=== PATIENT | male | born 1995 | race African-American/Black ===

== ENCOUNTER 2017-04-11 03:03 | Emergency (ER) | payer OTHER ==
[~2017-04-11] VITALS: Ht 195.6 cm; Wt 124.7 kg
[~2017-04-11 03:03] MED LIST: ANTIFUNGAL15 G1 TP; CYCLOBENZAPRINE5 MG PO; MOBIC15 MG PO
[2017-04-11] MEDS ORDERED: PERCOCET 10-321 EACH PO (03:29)
[2017-04-11] MEDS ORDERED: ENOXAPARIN40 MG/0.1 SUBQ (03:30)
[2017-04-11] MEDS ORDERED: COLACE100 MG PO (03:30)
[2017-04-11] MEDS ORDERED: ONDANSETRON HCL4 M2 PO (03:31)
[2017-04-11] MEDS ORDERED: NORFLEX100 MG PO (04:25)
== END 2017-04-11 04:55 | disposition home or self-care (01) ==
LOC: ER 03:03
DX: R60.0 Localized edema (principal); F17.210 Nicotine dependence, cigarettes, uncomplicated

== ENCOUNTER 2020-02-22 01:27 | Emergency (ER) | payer OTHER ==
[~2020-02-22] VITALS: Ht 195.6 cm; Wt 108.9 kg
[~2020-02-22 01:27] MED LIST changes: +COLACE100 MG PO; +ENOXAPARIN40 MG/0.1 SUBQ; +NORFLEX100 MG PO; +ONDANSETRON HCL4 M2 PO; +PERCOCET 10-321 EACH PO
[2020-02-22 03:16] VITALS: BP 119/72
--- NOTE | 2020-02-22 07:30 | EKG ---
[address] [address] [place] [address] ELECTROCARDIOGRAM REPORT Name: BEBE HARRELL Room #: [facility]#: [id number] Admission: 02/22/20 Attend Phys: Discharge: 02/22/20 Date of : [birth year] Report #: [id number] ED Test Date: 2020-02-22 Test Time: 02:35:25 Pat Name: BEBE JULIO CESAR Department: Room: Gender: M Clerical Secretary: : 1995 Requested By: Sulaiman Dominique Order Number: [id number] MD: Lucius Enciso Measurements Intervals [place] Rate: 104 P: 56 MA: 116 QRS: 15 QRSD: 94 T: 27 QT: 345 QTc: 454 Interpretive Statements Sinus tachycardia ST elev, probable normal early repol pattern Baseline wander in lead(s) I,III,aVR,aVL,V2 No previous ECG available for comparison Electronically Signed On 02-22-2020 7:30:12 [employer] by Lucius Enciso [email or web address] <ELECTRONICALLY SIGNED> By: Lucius Enciso MD, [facility] 02/22/20 0730 [id number] Lucius Enciso MD, FACC /EPI
== END 2020-02-22 03:18 | disposition home or self-care (01) ==
LOC: ER 01:27
DX: R06.02 Shortness of breath (principal); F17.210 Nicotine dependence, cigarettes, uncomplicated; Z79.899 Other long term (current) drug therapy; Z20.828 Contact with and (suspected) exposure to other viral communicable diseases

== ENCOUNTER 2020-12-01 13:52 | Emergency (ER) | payer OTHER ==
[~2020-12-01] VITALS: Ht 195.6 cm; Wt 108.9 kg
[2020-12-01 15:53] VITALS: BP 147/93
== END 2020-12-01 15:53 | disposition home or self-care (01) ==
LOC: ER 13:52
PROVIDERS: Emergency Medicine
DX: M79.10 Myalgia, unspecified site (principal); Z20.822 Contact with and (suspected) exposure to COVID-19